=== PATIENT | female | born 1970 | race Caucasian/White ===

== ENCOUNTER 2021-07-11 14:44 | Emergency (ER) | payer OTHER ==
[~2021-07-11] VITALS: Ht 160 cm; Wt 100.0 kg
[2021-07-11 15:16] VITALS: BP 160/112
[2021-07-11] MEDS ORDERED: CEPH250T PO (17:39)
== END 2021-07-11 18:14 | disposition home or self-care (01) ==
LOC: ER 14:45
DX: S06.0X1A Concussion with loss of consciousness of 30 minutes or less, initial encounter (principal); S01.81XA Laceration without foreign body of other part of head, initial encounter; R55 Syncope and collapse; R11.0 Nausea; Z88.8 Allergy status to other drugs, medicaments and biological substances; Z79.2 Long term (current) use of antibiotics; W22.09XA Striking against other stationary object, initial encounter; Y93.89 Activity, other specified; Y92.89 Other specified places as the place of occurrence of the external cause; Y99.8 Other external cause status
CPT/HCPCS: 70450; 99284